=== PATIENT | male | born 1965 | race Caucasian/White ===

== ENCOUNTER 2017-12-12 09:14 | Inpatient (IN) | payer OTHER ==
[~2017-12-12] VITALS: Ht 182.9 cm; Wt 87.9 kg
[2017-12-12] MEDS: SODIUM CHLORIDE 0.9% 1,000 ML IV ONE ×2 (09:46→10:03)
[2017-12-12] MEDS ORDERED: MAALOX/HYOSCYAMINE/LIDOCAINE 45 ML BTL ONE (09:53)
[2017-12-12] MEDS ORDERED: ONDANSETRON ODT 4 MG ONE (09:53)
[2017-12-12] MEDS ORDERED: FAMOTIDINE 20 MG/2 ML ONE (09:55)
[2017-12-12] MEDS ORDERED: SODIUM CHLORIDE 0.9% 1,000ML IVBOLUS ONE ×2 (10:00→11:00)
[2017-12-12] MEDS ORDERED: ONDANSETRON ODT 4 MG PO ONE (10:00)
[2017-12-12] MEDS ORDERED: MAALOX/HYOSCYAMINE/LIDOCAINE 45 ML BTL PO ONE (10:00)
[2017-12-12] MEDS ORDERED: FAMOTIDINE 20 MG/2 ML IVP ONE (10:00)
[2017-12-12 10:09] LABS: MEAN CORPUSCULAR HEMOGLOBIN 31.9 pg (27.5-34.5); MEAN CORPUSCULAR VOLUME 93.6 fL (81-97); MEAN PLATELET VOLUME 7.8 fL (7.4-10.4); PLATELET COUNT 217 x10^3/uL (130-400); RED BLOOD COUNT 5.61 x10^6/uL (4.38-5.82); RED CELL DISTRIBUTION WIDTH 14.1 % (9.4-14.8)
[2017-12-12] MEDS ORDERED: CYCL-259 PO (10:12)
[2017-12-12] MEDS ORDERED: TAMS-11 PO (10:12)
[2017-12-12] MEDS ORDERED: OMEP20TA62 PO (10:12)
[2017-12-12] MEDS ORDERED: ATOR-2 PO (10:12)
[2017-12-12 10:20] LABS: ALANINE AMINOTRANSFERASE 55 U/L (12-78); ALBUMIN 3.3 g/dL (3.4-5.0); ANION GAP 12 mmol/L (5-15); CALCIUM 11.1 mg/dL (8.5-10.1); CHLORIDE 85 mmol/L (98-107); CREATININE 2.27 mg/dL (0.7-1.3)
[2017-12-12 10:22] LABS: ALKALINE PHOSPHATASE 96 U/L (45-117); BILIRUBIN,TOTAL 1.1 mg/dL (0.2-1.0); TOTAL PROTEIN 7.3 g/dL (6.4-8.2)
[2017-12-12 10:33] LABS: MD YES
[2017-12-12 10:35] LABS: <PLATELET ESTIMATE> ADEQUATE; <PLT MORPHOLOGY> NORMAL PLT MORPH; <RBC MORPHOLOGY> NORMAL; BANDS%(MANUAL) 2 % (0-7); LYMPH#(MANUAL) 2.39 x10^3/uL (1-3.4); LYMPHS% (MANUAL) 12 % (22-44); SEG#(MANUAL) 17.11 x10^3/uL (1.8-6.8); SEGS% (MANUAL) 86 % (42-75)
[2017-12-12] MEDS ORDERED: POTASSIUM CHLORIDE 40 MEQ in SODIUM CHLORIDE 0.9% 500 ML IV ONE (11:00)
[2017-12-12] MEDS ORDERED: POTASSIUM CHLORIDE 20 MEQ TAB.ER.PRT PO ONE (11:00)
[2017-12-12] MEDS ORDERED: POTASSIUM CHLORIDE 20 MEQ TAB.ER.PRT ONE (11:58)
[2017-12-12 12:49] VITALS: BP 144/92
[2017-12-12] MEDS ORDERED: OMEG1CAP39 PO (13:10)
[2017-12-12] MEDS ORDERED: IBUP200C5 PO (13:10)
[2017-12-12] MEDS ORDERED: MULT-658 PO (13:10)
[2017-12-12 13:20] VITALS: BP 144/92
[2017-12-12] MEDS ORDERED: FLUT9.9S NAS (13:30)
[2017-12-12] MEDS ORDERED: hydrALAzine 20 MG/ML, 1ML IVPush PRN (14:00)
[2017-12-12] MEDS ORDERED: ACETAMINOPHEN 325 MG TABLET PO PRN (14:00)
[2017-12-12] MEDS ORDERED: ONDANSETRON 2MG/ML, 2ML IVPush PRN (14:00)
[2017-12-12] MEDS ORDERED: BISACODYL 10 MG SUPP PR PRN (14:00)
[2017-12-12 14:03] VITALS: BP 144/92
[2017-12-12] MEDS: SODIUM CHLORIDE 0.9% 1,000 ML IV SCH ×2 (15:30→23:53)
[2017-12-12] MEDS: MAALOX/HYOSCYAMINE/LIDOCAINE 45 ML BTL PO PRN (15:30)
[2017-12-12] MEDS: CYCLOBENZAPRINE 10 MG TABLET PO PRN (15:31)
[2017-12-12] MEDS: HEPARIN 5,000 UNITS/ML, 1ML SQ SCH ×2 (15:31→23:57)
[2017-12-12] MEDS ORDERED: CYCLOBENZAPRINE 10 MG TABLET PO SCH (16:00)
[2017-12-12 16:54] LABS: ANION GAP 6 mmol/L (5-15); CALCIUM 9.8 mg/dL (8.5-10.1); CHLORIDE 93 mmol/L (98-107); CREATININE 2.13 mg/dL (0.7-1.3)
[2017-12-12 19:37] VITALS: BP 136/89
[2017-12-12] MEDS: OMEPRAZOLE 20 MG CAPSULE.DR PO SCH (21:08)
[2017-12-12] MEDS: ATORVASTATIN 80 MG TABLET PO SCH (21:08)
[2017-12-12] MEDS: DOCUSATE 100 MG CAPSULE PO SCH (21:08)
[2017-12-13 00:02] VITALS: BP 141/92
[2017-12-13 05:50] LABS: MEAN CORPUSCULAR HEMOGLOBIN 31.9 pg (27.5-34.5); MEAN CORPUSCULAR HGB CONC 34.3 g/dL (33.2-36.2); MEAN CORPUSCULAR VOLUME 92.9 fL (81-97); MEAN PLATELET VOLUME 7.6 fL (7.4-10.4); PLATELET COUNT 164 x10^3/uL (130-400); RED BLOOD COUNT 4.53 x10^6/uL (4.38-5.82); RED CELL DISTRIBUTION WIDTH 13.6 % (9.4-14.8)
[2017-12-13 05:54] LABS: CHLORIDE 97 mmol/L (98-107)
[2017-12-13 06:01] LABS: ALANINE AMINOTRANSFERASE 34 U/L (12-78); ALBUMIN 2.4 g/dL (3.4-5.0); ALKALINE PHOSPHATASE 65 U/L (45-117); ANION GAP 7 mmol/L (5-15); BILIRUBIN,TOTAL 1.1 mg/dL (0.2-1.0); CREATININE 1.91 mg/dL (0.7-1.3); TOTAL PROTEIN 5.5 g/dL (6.4-8.2)
[2017-12-13 07:15] VITALS: BP 141/88
[2017-12-13 07:32] LABS: MD YES
[2017-12-13 07:33] LABS: <PLATELET ESTIMATE> ADEQUATE; <PLT MORPHOLOGY> NORMAL PLT MORPH; <RBC MORPHOLOGY> NORMAL; LYMPH#(MANUAL) 0.64 x10^3/uL (1-3.4); LYMPHS% (MANUAL) 4 % (22-44); SEG#(MANUAL) 15.46 x10^3/uL (1.8-6.8); SEGS% (MANUAL) 96 % (42-75)
[2017-12-13 07:34] LABS: BASOPHILS # (AUTO) 0.01 x10^3/uL (0-0.1); BASOPHILS % (AUTO) 0 % (0-1); EOSINOPHILS # (AUTO) 0.03 x10^3/uL (0-0.4); EOSINOPHILS % (AUTO) 0 % (1-7); LYMPHOCYTES # (AUTO) 0.92 x10^3/uL (1-3.4); LYMPHOCYTES % (AUTO) 6 % (22-44); MONOCYTES # (AUTO) 0.39 x10^3/uL (0.2-0.8); MONOCYTES % (AUTO) 2 % (2-9); NEUTROPHILS # (AUTO) 14.78 x10^3/uL (1.8-6.8); NEUTROPHILS % (AUTO) 92 % (42-75)
[2017-12-13] MEDS ORDERED: POTASSIUM PHOSPHATE 44 MEQ in SODIUM CHLORIDE 0.9% 500 ML IV ONE (08:00)
[2017-12-13] MEDS ORDERED: POTASSIUM CHLORIDE 20 MEQ in SODIUM CHLORIDE 0.9% 250 ML IV ONE (08:00)
[2017-12-13] MEDS: DOCUSATE 100 MG CAPSULE PO SCH ×2 (09:00→20:50)
[2017-12-13] MEDS: POLYETHYLENE GLYCOL 17 GM PACKET PO SCH (09:00)
[2017-12-13] MEDS: SODIUM CHLORIDE 0.9% 1,000 ML IV SCH (09:39)
[2017-12-13] MEDS: HEPARIN 5,000 UNITS/ML, 1ML SQ SCH ×2 (09:40→18:00)
[2017-12-13] MEDS: TAMSULOSIN 0.4 MG CAP.ER.24H PO SCH (09:40)
[2017-12-13] MEDS: MULTIVITAMIN 1 TABLET PO SCH (09:40)
[2017-12-13] MEDS: OMEGA-3/FISH OIL CAPSULE PO SCH (09:40)
[2017-12-13] MEDS: FLUTICASONE NASAL SPRAY 16GM NAS SCH (10:45)
[2017-12-13] MEDS: CYCLOBENZAPRINE 10 MG TABLET PO PRN ×2 (10:45→20:51)
[2017-12-13 12:27] VITALS: BP 131/86
[2017-12-13 12:54] LABS: CLOSTRIDIUM DIFFICILE ANTIGEN NEGATIVE; CLOSTRIDIUM DIFFICILE TOXIN NEGATIVE (Negative)
[2017-12-13 19:24] VITALS: BP 130/78
[2017-12-13] MEDS: ATORVASTATIN 80 MG TABLET PO SCH (20:51)
[2017-12-13] MEDS: OMEPRAZOLE 20 MG CAPSULE.DR PO SCH (20:51)
[2017-12-13] MEDS: HYDROcodone/APAP 5/325 TABLET PO PRN (21:02)
[2017-12-13] MEDS: MAALOX/HYOSCYAMINE/LIDOCAINE 45 ML BTL PO PRN (21:02)
[2017-12-14] MEDS: DIPHENHYDRAMINE 50 MG CAPSULE PO PRN ×2 (00:08→20:31)
[2017-12-14] MEDS: SODIUM CHLORIDE 0.9% 1,000 ML IV SCH ×3 (01:07→17:30)
[2017-12-14] MEDS: HEPARIN 5,000 UNITS/ML, 1ML SQ SCH ×3 (01:08→17:38)
[2017-12-14 03:08] VITALS: BP 125/87
[2017-12-14 07:30] LABS: MEAN CORPUSCULAR HEMOGLOBIN 31.9 pg (27.5-34.5); MEAN CORPUSCULAR HGB CONC 34.1 g/dL (33.2-36.2); MEAN CORPUSCULAR VOLUME 93.3 fL (81-97); MEAN PLATELET VOLUME 7.5 fL (7.4-10.4); PLATELET COUNT 158 x10^3/uL (130-400); RED BLOOD COUNT 4.36 x10^6/uL (4.38-5.82); RED CELL DISTRIBUTION WIDTH 13.9 % (9.4-14.8)
[2017-12-14 07:39] LABS: ANION GAP 8 mmol/L (5-15); CALCIUM 8.4 mg/dL (8.5-10.1); CHLORIDE 99 mmol/L (98-107); CREATININE 1.68 mg/dL (0.7-1.3)
[2017-12-14 07:53] LABS: BASOPHILS # (AUTO) 0.01 x10^3/uL (0-0.1); BASOPHILS % (AUTO) 0 % (0-1); EOSINOPHILS # (AUTO) 0.06 x10^3/uL (0-0.4); EOSINOPHILS % (AUTO) 0 % (1-7); LYMPHOCYTES # (AUTO) 0.65 x10^3/uL (1-3.4); LYMPHOCYTES % (AUTO) 3 % (22-44); MD SCAN; MONOCYTES # (AUTO) 0.97 x10^3/uL (0.2-0.8); MONOCYTES % (AUTO) 5 % (2-9); NEUTROPHILS # (AUTO) 17.58 x10^3/uL (1.8-6.8); NEUTROPHILS % (AUTO) 91 % (42-75)
[2017-12-14 08:04] VITALS: BP 127/84
[2017-12-14] MEDS ORDERED: POTASSIUM PHOSPHATE 44 MEQ in SODIUM CHLORIDE 0.9% 500 ML IV ONE (09:00)
[2017-12-14] MEDS: POLYETHYLENE GLYCOL 17 GM PACKET PO SCH (09:00)
[2017-12-14] MEDS: DOCUSATE 100 MG CAPSULE PO SCH (09:00)
[2017-12-14] MEDS: FLUTICASONE NASAL SPRAY 16GM NAS SCH (09:31)
[2017-12-14] MEDS: OMEGA-3/FISH OIL CAPSULE PO SCH (09:32)
[2017-12-14] MEDS: CYCLOBENZAPRINE 10 MG TABLET PO PRN ×2 (09:32→18:40)
[2017-12-14] MEDS: TAMSULOSIN 0.4 MG CAP.ER.24H PO SCH (09:32)
[2017-12-14] MEDS: MULTIVITAMIN 1 TABLET PO SCH (09:32)
[2017-12-14] MEDS ORDERED: POLYETHYLENE GLYCOL 17 GM PACKET PO PRN (10:30)
[2017-12-14] MEDS ORDERED: DOCUSATE 100 MG CAPSULE PO PRN (10:30)
[2017-12-14] MEDS: HYDROcodone/APAP 5/325 TABLET PO PRN ×2 (12:48→18:40)
[2017-12-14 13:52] VITALS: BP 128/88
[2017-12-14] MEDS ORDERED: LOPERAMIDE 2 MG CAPSULE PO PRN (14:00)
[2017-12-14] MEDS ORDERED: LOPERAMIDE 2 MG CAPSULE PO ONE (14:00)
[2017-12-14] MEDS: LEVOFLOXACIN 500 MG TABLET PO SCH (17:38)
[2017-12-14 20:00] VITALS: BP 119/80
[2017-12-14] MEDS: ATORVASTATIN 80 MG TABLET PO SCH (20:31)
[2017-12-14] MEDS: OMEPRAZOLE 20 MG CAPSULE.DR PO SCH (20:31)
[2017-12-15 02:00] VITALS: BP 114/80
[2017-12-15] MEDS: HEPARIN 5,000 UNITS/ML, 1ML SQ SCH ×2 (02:15→09:15)
[2017-12-15] MEDS: SODIUM CHLORIDE 0.9% 1,000 ML IV SCH (03:39)
[2017-12-15] MEDS: HYDROcodone/APAP 5/325 TABLET PO PRN ×2 (03:49→09:42)
[2017-12-15 06:02] LABS: MEAN CORPUSCULAR HEMOGLOBIN 32.2 pg (27.5-34.5); MEAN CORPUSCULAR HGB CONC 34.4 g/dL (33.2-36.2); MEAN CORPUSCULAR VOLUME 93.6 fL (81-97); MEAN PLATELET VOLUME 7.6 fL (7.4-10.4); PLATELET COUNT 161 x10^3/uL (130-400); RED BLOOD COUNT 4.08 x10^6/uL (4.38-5.82)
[2017-12-15 06:04] LABS: ANION GAP 8 mmol/L (5-15); CALCIUM 7.7 mg/dL (8.5-10.1); CHLORIDE 103 mmol/L (98-107); CREATININE 1.54 mg/dL (0.7-1.3)
[2017-12-15 06:25] LABS: BASOPHILS # (AUTO) 0.01 x10^3/uL (0-0.1); BASOPHILS % (AUTO) 0 % (0-1); EOSINOPHILS # (AUTO) 0.22 x10^3/uL (0-0.4); EOSINOPHILS % (AUTO) 1 % (1-7); LYMPHOCYTES # (AUTO) 0.68 x10^3/uL (1-3.4); LYMPHOCYTES % (AUTO) 4 % (22-44); MD SCAN; MONOCYTES # (AUTO) 0.92 x10^3/uL (0.2-0.8); MONOCYTES % (AUTO) 6 % (2-9); NEUTROPHILS # (AUTO) 13.65 x10^3/uL (1.8-6.8); NEUTROPHILS % (AUTO) 88 % (42-75)
[2017-12-15 08:08] VITALS: BP 130/87
[2017-12-15] MEDS: OMEGA-3/FISH OIL CAPSULE PO SCH (08:13)
[2017-12-15] MEDS: FLUTICASONE NASAL SPRAY 16GM NAS SCH (08:13)
[2017-12-15] MEDS: MULTIVITAMIN 1 TABLET PO SCH (08:13)
[2017-12-15] MEDS: TAMSULOSIN 0.4 MG CAP.ER.24H PO SCH (08:13)
[2017-12-15] MEDS: CYCLOBENZAPRINE 10 MG TABLET PO PRN (08:41)
[2017-12-15] MEDS ORDERED: LEVO500T47 PO (08:53)
[2017-12-15] MEDS ORDERED: LOPE2CAP PO (08:53)
[2017-12-15] MEDS: LEVOFLOXACIN 500 MG TABLET PO SCH (09:42)
== END 2017-12-15 10:39 | disposition home or self-care (01) | DRG 682 ==
LOC: ED 10:48 → EDIP 11:47 → 4EST 12:36 → DCLOUNGE 12-15 10:18
PROVIDERS: ADMIT Hospitalist; ATTEND Hospitalist
DX: N17.9 Acute kidney failure, unspecified (principal); E43 Unspecified severe protein-calorie malnutrition; E87.3 Alkalosis; E83.39 Other disorders of phosphorus metabolism; E83.52 Hypercalcemia; R17 Unspecified jaundice; E87.1 Hypo-osmolality and hyponatremia; E86.0 Dehydration; E87.5 Hyperkalemia; E87.6 Hypokalemia; F17.210 Nicotine dependence, cigarettes, uncomplicated; G89.29 Other chronic pain; J30.2 Other seasonal allergic rhinitis; K29.00 Acute gastritis without bleeding; K52.9 Noninfective gastroenteritis and colitis, unspecified; N40.0 Benign prostatic hyperplasia without lower urinary tract symptoms; Z80.7 Family history of other malignant neoplasms of lymphoid, hematopoietic and related tissues; Z82.5 Family history of asthma and other chronic lower respiratory diseases; Z68.26 Body mass index [BMI] 26.0-26.9, adult
CPT/HCPCS: 36415; 80048; 80053; 83690; 83735; 84100; 85025; 87040; 87046; 87324; 87427; 89055; 96361; 96365; 96375; J1644; J3480; Q0162; J7030; J7040; S0028

== ENCOUNTER 2018-01-16 18:39 | Emergency (ER) | payer OTHER ==
[~2018-01-16] VITALS: Ht 182.9 cm; Wt 82.0 kg
[~2018-01-16 18:39] MED LIST: ATOR-2 PO; ATOR10TA PO; CYCL-259 PO; FLUT9.9S NAS; IBUP200C5 PO; LEVO500T47 PO; LISI5TAB7 PO; LOPE2CAP PO; MONT10TA9 PO; MULT-658 PO; OMEG1CAP39 PO; OMEP20TA62 PO; TAMS-11 PO
[2018-01-16] MEDS ORDERED: SODIUM CHLORIDE 0.9% 1,000ML IVBOLUS ONE (19:00)
[2018-01-16] MEDS ORDERED: SODIUM CHLORIDE FLUSH 10ML SYR IVF ONE (19:00)
[2018-01-16] MEDS ORDERED: LIDOCAINE 1%, 10ML INFIL ONE (19:00)
[2018-01-16] MEDS ORDERED: LIDOCAINE-MPF 2% ,5ML ONE (19:01)
[2018-01-16 19:21] LABS: ALANINE AMINOTRANSFERASE 31 U/L (12-78); ANION GAP 12 mmol/L (5-15); BASOPHILS # (AUTO) 0.03 x10^3/uL (0-0.1); BASOPHILS % (AUTO) 0 % (0-1); CHLORIDE 112 mmol/L (98-107); CREATININE 1.65 mg/dL (0.7-1.3); EOSINOPHILS # (AUTO) 0.27 x10^3/uL (0-0.4); EOSINOPHILS % (AUTO) 3 % (1-7); LYMPHOCYTES # (AUTO) 2.54 x10^3/uL (1-3.4); LYMPHOCYTES % (AUTO) 28 % (22-44); MD NO; MEAN CORPUSCULAR HEMOGLOBIN 31.2 pg (27.5-34.5); MEAN CORPUSCULAR HGB CONC 34.1 g/dL (33.2-36.2); MEAN CORPUSCULAR VOLUME 91.6 fL (81-97); MEAN PLATELET VOLUME 6.9 fL (7.4-10.4); MONOCYTES # (AUTO) 0.54 x10^3/uL (0.2-0.8); MONOCYTES % (AUTO) 6 % (2-9); NEUTROPHILS # (AUTO) 5.56 x10^3/uL (1.8-6.8); NEUTROPHILS % (AUTO) 62 % (42-75); PLATELET COUNT 331 x10^3/uL (130-400); RED BLOOD COUNT 4.79 x10^6/uL (4.38-5.82); RED CELL DISTRIBUTION WIDTH 15.1 % (9.4-14.8)
[2018-01-16 19:25] LABS: ALKALINE PHOSPHATASE 73 U/L (45-117); BILIRUBIN,TOTAL 0.2 mg/dL (0.2-1.0); TROPONIN I < 0.015 ng/mL (0.000-0.045)
[2018-01-16 19:51] VITALS: BP 111/68
== END 2018-01-16 21:04 | disposition left against medical advice (07) ==
LOC: ED 21:00
DX: F10.120 Alcohol abuse with intoxication, uncomplicated (principal); Z88.1 Allergy status to other antibiotic agents; Z88.0 Allergy status to penicillin; Z88.8 Allergy status to other drugs, medicaments and biological substances; Z79.899 Other long term (current) drug therapy
CPT/HCPCS: 36415; 70450; 80053; 80307; 84484; 85025; 93005; 96360; 96361; 99285; J3490; J7030

== ENCOUNTER → 2018-09-26 | Outpatient (CLI) | payer OTHER ==
[~2018-09-26] MED LIST changes: +IBUP-1623 PO; -IBUP200C5 PO
== END | disposition home or self-care (01) ==
LOC: RAD 09:43
PROVIDERS: ATTEND Registered Nurse Registered Nurse First Assistant
DX: S33.130A Subluxation of L3/L4 lumbar vertebra, initial encounter (principal); M47.816 Spondylosis without myelopathy or radiculopathy, lumbar region; M48.061 Spinal stenosis, lumbar region without neurogenic claudication; Y99.8 Other external cause status; X58.XXXA Exposure to other specified factors, initial encounter; Y93.89 Activity, other specified; Y92.89 Other specified places as the place of occurrence of the external cause
CPT/HCPCS: 72110; 72148

== ENCOUNTER 2019-05-30 05:19 | Day surgery (SDC) | payer OTHER ==
[~2019-05-30] VITALS: Ht 182.9 cm; Wt 84.0 kg
[~2019-05-30 05:19] MED LIST changes: +FINASTERIDE; +FOLI-17 PO; +GABA300C10 PO; +METO25TA35 PO; +PROZAC; +SEROQUEL; +THIA100T67 PO; +TRAZ150T62 PO
[2019-05-30] MEDS ORDERED: LACTATED RINGERS 1,000 ML IV SCH (05:58)
[2019-05-30] MEDS ORDERED: LIDOCAINE 1%, 20ML ONE (06:21)
[2019-05-30] MEDS ORDERED: BUPIVACAINE/PF 0.5% ONE (06:21)
[2019-05-30] MEDS ORDERED: MIDAZOLAM 1 MG/ML, 2ML ONE (06:28)
[2019-05-30] MEDS ORDERED: FENTANYL PF 250 MCG/5ML ONE (06:29)
[2019-05-30] MEDS ORDERED: ACETAMINOPHEN 500 MG TABLET ONE ×2 (06:36→14:35)
[2019-05-30] MEDS ORDERED: GABAPENTIN 300 MG CAPSULE ONE ×2 (06:36→14:35)
[2019-05-30] MEDS ORDERED: MELOXICAM PO (06:42)
[2019-05-30] MEDS ORDERED: LISI5TAB7 PO (06:42)
[2019-05-30 06:44] VITALS: BP 118/79
[2019-05-30] MEDS ORDERED: CETI10CA PO (06:44)
[2019-05-30] MEDS ORDERED: PROPOFOL 10 MG/ML, 20ML ONE (07:04)
[2019-05-30] MEDS ORDERED: ONDANSETRON 2MG/ML, 2ML ONE (07:04)
[2019-05-30] MEDS ORDERED: DEXAMETHASONE 4 MG/ML, 1ML ONE (07:04)
[2019-05-30] MEDS ORDERED: CEFAZOLIN 1,000 MG ONE (07:04)
[2019-05-30] MEDS ORDERED: METOPROLOL 1 MG/ML, 5ML ONE (07:04)
[2019-05-30] MEDS ORDERED: ROCURONIUM 10 MG/ML,10ML ONE (07:04)
[2019-05-30] MEDS ORDERED: ALBUTEROL SULFATE 2.5 MG/3 ML NPPB PRN (09:00)
[2019-05-30] MEDS ORDERED: OXYcodone 5 MG/5 ML ORAL.SOL UDC PO PRN (09:00)
[2019-05-30] MEDS ORDERED: DIAZEPAM 5 MG/ML, 2ML IVPush PRN (09:00)
[2019-05-30] MEDS ORDERED: FENTANYL PF 100 MCG/2ML IV PRN (09:00)
[2019-05-30] MEDS ORDERED: KETOROLAC 30 MG/1 ML IV PRN (09:00)
[2019-05-30] MEDS ORDERED: HYDROmorphone 2 MG/ML, 1ML IVPush PRN (09:00)
[2019-05-30] MEDS ORDERED: hydrALAzine 20 MG/ML, 1ML IV PRN (09:00)
[2019-05-30] MEDS ORDERED: PROMETHAZINE 25 MG/ML, 1ML IV PRN (09:00)
[2019-05-30] MEDS ORDERED: LABETALOL 5MG/ML, 20ML IV PRN (09:00)
[2019-05-30] MEDS ORDERED: MEPERIDINE/PF 25MG/0.5ML IVPush PRN (09:00)
[2019-05-30] MEDS ORDERED: hydrALAzine 20 MG/ML, 1ML ONE (11:44)
== END 2019-05-30 13:40 | disposition home or self-care (01) ==
LOC: OUT 05:19
PROVIDERS: ATTEND Orthopaedic Surgery
DX: S93.324A Dislocation of tarsometatarsal joint of right foot, initial encounter (principal); I10 Essential (primary) hypertension; E78.5 Hyperlipidemia, unspecified; Z72.89 Other problems related to lifestyle; Z79.899 Other long term (current) drug therapy; Z87.891 Personal history of nicotine dependence; X50.1XXA Overexertion from prolonged static or awkward postures, initial encounter; W10.8XXA Fall (on) (from) other stairs and steps, initial encounter; Y93.89 Activity, other specified; Y92.89 Other specified places as the place of occurrence of the external cause; Y99.8 Other external cause status
CPT/HCPCS: 20902; 28615; 28730; 64445; 64447; 73630; C1713; J0360; J0690; J1100; J2250; J2405; J2704; J3010; J7120; 76000

== ENCOUNTER 2019-07-02 10:05 | Emergency (ER) | payer OTHER ==
[~2019-07-02] VITALS: Ht 182.9 cm; Wt 87.0 kg
[~2019-07-02 10:05] MED LIST changes: +CETI10CA PO; +MELOXICAM PO
[2019-07-02] MEDS ORDERED: SODIUM CHLORIDE FLUSH 10ML SYR IVF ONE (11:00)
--- NOTE | 2019-07-02 11:12 | NUR ---
Pt to room from lobby via wheelchair.
[2019-07-02 11:21] LABS: MEAN CORPUSCULAR HEMOGLOBIN 31.8 pg (27.5-34.5); MEAN CORPUSCULAR HGB CONC 33.3 g/dL (33.2-36.2); MEAN CORPUSCULAR VOLUME 95.5 fL (81-97); MEAN PLATELET VOLUME 7.6 fL (7.4-10.4); PLATELET COUNT 349 x10^3/uL (130-400); RED BLOOD COUNT 4.13 x10^6/uL (4.38-5.82); RED CELL DISTRIBUTION WIDTH 13.9 % (9.4-14.8)
[2019-07-02 11:31] LABS: RAPID INFLUENZA A Negative (Negative); RAPID INFLUENZA B Negative (Negative)
[2019-07-02 11:34] LABS: ALANINE AMINOTRANSFERASE 36 U/L (12-78); ALBUMIN 3.5 g/dL (3.4-5.0); ANION GAP 14 mmol/L (5-15); CALCIUM 9.9 mg/dL (8.5-10.1); CHLORIDE 101 mmol/L (98-107)
[2019-07-02 11:43] LABS: ALKALINE PHOSPHATASE 117 U/L (45-117); BILIRUBIN,TOTAL 0.4 mg/dL (0.2-1.0); CREATININE 2.11 mg/dL (0.7-1.3); TOTAL PROTEIN 8.1 g/dL (6.4-8.2)
[2019-07-02 11:51] LABS: BASOPHILS % (AUTO) 0 % (0-1); EOSINOPHILS # (AUTO) 0.14 x10^3/uL (0-0.4); EOSINOPHILS % (AUTO) 1 % (1-7); LYMPHOCYTES # (AUTO) 1.24 x10^3/uL (1-3.4); LYMPHOCYTES % (AUTO) 7 % (22-44); MD SCAN; MONOCYTES # (AUTO) 0.46 x10^3/uL (0.2-0.8); MONOCYTES % (AUTO) 3 % (2-9); NEUTROPHILS # (AUTO) 14.82 x10^3/uL (1.8-6.8); NEUTROPHILS % (AUTO) 89 % (42-75)
--- NOTE | 2019-07-02 11:54 | NUR ---
LATE NOTE ENTRY DUE TO PT CARE. Pt presents to ED with c/o n/v for past 24 hours. Pt states history of same related to "alcoholism." Pt states last drink was "5 days ago." MARQUISN. Pt's mother at bedside. Pt resting on gurney connected to NIBP cuff and continous pulse ox monitor. Call light within reach. Pt denies tremors, seizures, cp, sob, trauma, or diarrhea.
[2019-07-02] MEDS ORDERED: FAMOTIDINE 20 MG/2 ML IVPush ONE (12:00)
[2019-07-02] MEDS ORDERED: ONDANSETRON 2MG/ML, 2ML IVPush ONE (12:00)
[2019-07-02] MEDS ORDERED: SODIUM CHLORIDE 0.9%, 500ML IVBOLUS ONE (12:00)
[2019-07-02] MEDS ORDERED: MAALOX/HYOSCYAMINE/LIDOCAINE 45 ML BTL PO ONE (12:00)
[2019-07-02] MEDS ORDERED: POTASSIUM CHLORIDE 20 MEQ TAB.ER.PRT ONE (12:51)
[2019-07-02] MEDS ORDERED: ONDANSETRON 2MG/ML, 2ML ONE (12:51)
[2019-07-02] MEDS ORDERED: MAALOX/HYOSCYAMINE/LIDOCAINE 45 ML BTL ONE (12:51)
[2019-07-02] MEDS ORDERED: FAMOTIDINE 20 MG/2 ML ONE (12:51)
[2019-07-02] MEDS ORDERED: POTASSIUM CHLORIDE 20 MEQ TAB.ER.PRT PO ONE (13:00)
[2019-07-02] MEDS ORDERED: ONDANSETRON ODT 4 MG ONE (13:41)
[2019-07-02] MEDS ORDERED: FAMOTIDINE 20 MG TABLET ONE (13:41)
[2019-07-02 13:46] VITALS: BP 115/90
--- NOTE | 2019-07-02 13:46 | NUR ---
BREAK NOTE FOR RN: MULTIPLE IV ATTEMPTS, DISCUSSION REGARDING PO MEDS WITH PRIMARY RN. WELFARE ANALYST AWARE OF DELAY DUE TO FAILED IV. NAD NOTED IN PT. NO NOTED VOMITING, DENIES VOMITING IN LAST 3 HRS.
[2019-07-02] MEDS ORDERED: FAMOTIDINE 20 MG TABLET PO ONE (14:00)
[2019-07-02] MEDS ORDERED: ONDANSETRON ODT 4 MG PO ONE (14:00)
== END 2019-07-02 15:53 | disposition home or self-care (01) ==
LOC: ED 11:22
DX: R11.2 Nausea with vomiting, unspecified (principal); E86.0 Dehydration; R10.13 Epigastric pain; R94.31 Abnormal electrocardiogram [ECG] [EKG]; I10 Essential (primary) hypertension; Z88.0 Allergy status to penicillin; Z88.2 Allergy status to sulfonamides; Z88.6 Allergy status to analgesic agent
CPT/HCPCS: 36415; 80053; 83690; 83735; 85025; 87400; 93005; 99284; Q0162

== ENCOUNTER 2019-10-27 14:10 | Emergency (ER) | payer MEDICAID, OTHER ==
[~2019-10-27] VITALS: Ht 182.9 cm; Wt 74.2 kg
[~2019-10-27 14:10] MED LIST changes: +MONT10TA11 PO; -MONT10TA9 PO
--- NOTE | 2019-10-27 14:31 | NUR ---
PT CAME IN CO OF HAVING BLOODY VOMIT AND A COUGH. PT REPORTS DRINKING 4 GLASSES OF WIN TODAY AND HAS A "BURNING THROAT". VSS. NAD. PT IS WEARING MASK AND IN ISOLATED ROOM.
[2019-10-27] MEDS ORDERED: SODIUM CHLORIDE 0.9% 1,000 ML IV ONE (14:46)
[2019-10-27] MEDS ORDERED: ONDANSETRON 2MG/ML, 2ML ONE (14:53)
[2019-10-27] MEDS ORDERED: MORPHINE SULFATE 4 MG/ML, 1ML ONE (14:54)
[2019-10-27] MEDS ORDERED: FAMOTIDINE 20 MG/2 ML ONE (14:54)
[2019-10-27] MEDS ORDERED: MAALOX/HYOSCYAMINE/LIDOCAINE 45 ML BTL ONE (14:54)
[2019-10-27] MEDS ORDERED: SODIUM CHLORIDE FLUSH 10ML SYR IVF ONE (15:00)
[2019-10-27] MEDS ORDERED: MORPHINE SULFATE 4 MG/ML, 1ML IVPush PRN (15:00)
[2019-10-27] MEDS ORDERED: LORazepam 2 MG/ML, 1ML IVPush ONE (15:00)
[2019-10-27] MEDS ORDERED: MAALOX/HYOSCYAMINE/LIDOCAINE 45 ML BTL PO ONE (15:00)
[2019-10-27] MEDS ORDERED: FAMOTIDINE 20 MG/2 ML IV ONE (15:00)
[2019-10-27] MEDS ORDERED: ONDANSETRON 2MG/ML, 2ML IVPush ONE (15:00)
[2019-10-27] MEDS ORDERED: SODIUM CHLORIDE 0.9% 1,000ML IVBOLUS ONE (15:00)
[2019-10-27 15:19] LABS: MEAN CORPUSCULAR HEMOGLOBIN 32.6 pg (27.5-34.5); MEAN CORPUSCULAR HGB CONC 33.5 g/dL (33.2-36.2); MEAN CORPUSCULAR VOLUME 97.3 fL (81-97); MEAN PLATELET VOLUME 6.7 fL (7.4-10.4); PLATELET COUNT 455 x10^3/uL (130-400); RED BLOOD COUNT 4.32 x10^6/uL (4.38-5.82); RED CELL DISTRIBUTION WIDTH 13.8 % (9.4-14.8)
[2019-10-27] MEDS ORDERED: LORazepam 2 MG/ML, 1ML ONE (15:20)
[2019-10-27 15:30] LABS: ALANINE AMINOTRANSFERASE 23 U/L (12-78); ALBUMIN 3.9 g/dL (3.4-5.0); ANION GAP 15 mmol/L (5-15); CALCIUM 10.1 mg/dL (8.5-10.1); CHLORIDE 106 mmol/L (98-107); CREATININE 1.81 mg/dL (0.7-1.3)
[2019-10-27 15:32] LABS: ALKALINE PHOSPHATASE 112 U/L (45-117); BILIRUBIN,TOTAL 0.4 mg/dL (0.2-1.0); TOTAL PROTEIN 8.4 g/dL (6.4-8.2)
[2019-10-27 15:34] LABS: BASOPHILS # (AUTO) 0.01 x10^3/uL (0-0.1); BASOPHILS % (AUTO) 0 % (0-1); EOSINOPHILS # (AUTO) 0.05 x10^3/uL (0-0.4); EOSINOPHILS % (AUTO) 0 % (1-7); LYMPHOCYTES # (AUTO) 2.17 x10^3/uL (1-3.4); LYMPHOCYTES % (AUTO) 12 % (22-44); MD SCAN; MONOCYTES # (AUTO) 0.75 x10^3/uL (0.2-0.8); MONOCYTES % (AUTO) 4 % (2-9); NEUTROPHILS # (AUTO) 15.31 x10^3/uL (1.8-6.8); NEUTROPHILS % (AUTO) 84 % (42-75)
--- NOTE | 2019-10-27 15:44 | NUR ---
PT REPORTS PAIN AND [place] IMPROVEMENT. SECOND BLANKET PROVIDED. [facility] SENT
[2019-10-27 15:58] LABS: MICROSCOPIC NOT IND
[2019-10-27] MEDS ORDERED: THIAMINE 100 MG in SODIUM CHLORIDE 0.9% 50 ML IV ONE (16:00)
[2019-10-27 16:13] VITALS: BP 149/97
[2019-10-27 16:13] LABS: CULTURE INDICATED? NO
--- NOTE | 2019-10-27 16:16 | NUR ---
PT RESTING IN [facility]. NAD. VSS. NO NEEDS AT THIS TIME
== END 2019-10-27 16:56 | disposition home or self-care (01) ==
LOC: ED 14:40
DX: R11.2 Nausea with vomiting, unspecified (principal); I12.9 Hypertensive chronic kidney disease with stage 1 through stage 4 chronic kidney disease, or unspecified chronic kidney disease; N18.9 Chronic kidney disease, unspecified; F10.229 Alcohol dependence with intoxication, unspecified; D72.829 Elevated white blood cell count, unspecified; Y90.0 Blood alcohol level of less than 20 mg/100 ml
CPT/HCPCS: 36415; 71045; 80053; 80307; 81003; 83690; 85025; 96361; 96365; 96375; 99284; J2060; J2270; J2405; J3411; J3490; J7030

== ENCOUNTER 2020-05-29 08:13 | Emergency (ER) | payer MEDICAID ==
[~2020-05-29] VITALS: Ht 182.9 cm; Wt 82.0 kg
--- NOTE | 2020-05-29 08:17 | NUR ---
PT BIB EMS FOR ETOH DETOX. LAST DRINK LAST NIGHT. PT STATES HE DRINKS APPROX 1 L A DAY. DENIES SEIZURES OR HX OF. TREMULOUS. PT A&OX4. DENIES CP OR SOB. NO COUGH. GI N/V CURRENTLY,
[2020-05-29] MEDS ORDERED: SODIUM CHLORIDE FLUSH 10ML SYR IVF ONE (09:00)
[2020-05-29] MEDS ORDERED: THIAMINE 100MG TABLET PO ONE (09:00)
[2020-05-29] MEDS ORDERED: LORazepam 2 MG/ML, 1ML IVPush PRN (09:00)
[2020-05-29] MEDS ORDERED: SODIUM CHLORIDE 0.9% 1,000ML IVBOLUS ONE (09:00)
[2020-05-29] MEDS ORDERED: ONDANSETRON 2MG/ML, 2ML IVPush ONE (09:00)
[2020-05-29] MEDS ORDERED: MAALOX/HYOSCYAMINE/LIDOCAINE 45 ML BTL PO ONE (09:00)
[2020-05-29] MEDS ORDERED: MAALOX/HYOSCYAMINE/LIDOCAINE 45 ML BTL ONE (09:12)
[2020-05-29 09:20] LABS: ALANINE AMINOTRANSFERASE 26 U/L (12-78); ALBUMIN 3.8 g/dL (3.4-5.0); ANION GAP 18 mmol/L (5-15); CHLORIDE 110 mmol/L (98-107); CREATININE 1.71 mg/dL (0.7-1.3)
[2020-05-29] MEDS ORDERED: ONDANSETRON 2MG/ML, 2ML ONE (09:22)
[2020-05-29] MEDS ORDERED: THIAMINE 100MG TABLET ONE (09:22)
[2020-05-29 09:23] LABS: ALKALINE PHOSPHATASE 182 U/L (45-117); BILIRUBIN,TOTAL 0.4 mg/dL (0.2-1.0); TOTAL PROTEIN 8.8 g/dL (6.4-8.2)
[2020-05-29] MEDS ORDERED: LORazepam 2 MG/ML, 1ML ONE (09:23)
[2020-05-29 09:27] VITALS: BP 149/109
--- NOTE | 2020-05-29 09:47 | NUR ---
MEDICATED PER ORDERS, IVF
[2020-05-29 10:13] LABS: MEAN CORPUSCULAR HEMOGLOBIN 31.3 pg (27.5-34.5); MEAN PLATELET VOLUME 6.9 fL (7.4-10.4); PLATELET COUNT 532 x10^3/uL (130-400); RED BLOOD COUNT 4.83 x10^6/uL (4.38-5.82); RED CELL DISTRIBUTION WIDTH 14.8 % (9.4-14.8)
[2020-05-29 10:26] LABS: MD YES
[2020-05-29 10:27] LABS: BASOS#(MANUAL) 0.19 x10^3/uL (0-0.1); BASOS% (MANUAL) 1 % (0-1); LYMPH#(MANUAL) 1.94 x10^3/uL (1-3.4); LYMPHS% (MANUAL) 10 % (22-44); MONOS#(MANUAL) 1.16 x10^3/uL (0.3-2.7); MONOS% (MANUAL) 6 % (2-9); SEGS% (MANUAL) 83 % (42-75)
[2020-05-29 10:28] LABS: <PLATELET ESTIMATE> INCREASED; <PLT MORPHOLOGY> NORMAL PLT MORPH; <RBC MORPHOLOGY> NORMAL
[2020-05-29 11:32] LABS: MICROSCOPIC INDICATED
--- NOTE | 2020-05-29 12:57 | NUR ---
[facility] given discharge instructions and prescription and they have confirmed that they understand the instructions, all questions answered. Patient signed controlled substance contract. Patient ambulatory with steady gait to discharge desk.
== END 2020-05-29 12:58 | disposition home or self-care (01) ==
LOC: ED 11:10
DX: F10.10 Alcohol abuse, uncomplicated (principal); F41.1 Generalized anxiety disorder; R07.9 Chest pain, unspecified; R11.2 Nausea with vomiting, unspecified; I10 Essential (primary) hypertension; Z88.0 Allergy status to penicillin; Z88.2 Allergy status to sulfonamides; Z88.1 Allergy status to other antibiotic agents; Y90.9 Presence of alcohol in blood, level not specified
CPT/HCPCS: 36415; 71045; 80053; 81001; 83690; 85025; 96361; 96374; 96375; 99284; J2060; J2405; J7030